=== PATIENT | female | born 1995 | race Hispanic/Latino ===

== ENCOUNTER 2025-08-13 03:42 | Emergency (ER) | payer SELFPAY ==
[~2025-08-13] VITALS: Ht 160 cm; Wt 99.8 kg
[~2025-08-13 03:42] MED LIST: FERR-82 PO
[2025-08-13 04:11] LABS: IMMATURE GRANULOCYTE ABSOLUTE 0.07 K/uL (0-1); NUCLEATED RED BLOOD CELLS 0.0 % (0.0-0.19); PLATELET COUNT (AUTO) 419 K/uL (130-400); RED BLOOD CELL COUNT(AUTO) 4.56 MIL/uL (4.00-5.50); RED CELL DISTRIBUTION WIDTH 12.9 % (11.0-15.5); WHITE BLOOD COUNT (AUTO) 13.7 K/uL (4.8-10.8)
[2025-08-13] MEDS: 0.9%NACL 1000ML 1,000 ML IV ONE ×2 (04:12→04:59)
--- NOTE | 2025-08-13 04:12 | ERN ---
ED Note History of Present Illness Stated Complaint: RT SIDED ABD PAIN, N/V Chief Complaint: Abdominal Pain Time Seen by MD: 03:46 Dictation: Patient is a 30-year-old female who presents to the ER complaining of abdominal pain, nausea vomiting started 3 hours prior arrival. Patient stated that she has been having the symptoms since 3 months ago, stated the 1st she feels like abdominal burning in the right abdomen and then she started to have vomiting. She was evaluated outside hospital 1 month ago, was told that her symptoms was due to side effect of marijuana. Allergies: Coded Allergies: No Known Drug Allergies (Unverified Allergy, Unknown, 09/21/19) Home Meds Reported Medications Ferrous Sulfate (Iron) 325 Mg Tablet, 325 MG PO DAILY, TAB 09/21/19 Past Medical History Past Medical History: No Pertinent History Surgical History: None Social History: Drugs (Marijuana use) RN Note Reviewed/Agreed w/PFSH: Yes Review of System Dictation NEGATIVE EXCEPT PER HPI Constitutional: Negative for fever,chills, and weight loss Eyes: Negative for injury, pain,redness, and discharge ENT: Negative for injury,pain or swelling Cardiovascular: denies chest pain, palpitations, and edema Respiratory: Negative for shortness of breath, cough, and wheezing, Abdomen/GI: Vomiting and abdominal pain reports. Back: Negative for injury and pain : Negative for injury, bleeding and discharge MS/Extremity: Negative for injury and deformity Skin: Negative for rash, and discoloration Neuro: Negative for headache, weakness, numbness, tingling, and seizure Psych: Negative for suicide ideation, homicidal ideation, and hallucinations Initial Vital Sign VS Vital Signs Date Time Temp Pulse Resp B/P (MAP) Pulse Ox O2 Delivery O2 Flow Rate FiO2 08/13/25 03:44 97.5 80 20 148/77 99 Room Air Physical Exam Dictation General: awake, alert, NAD Head/Face: Normocephalic, atraumatic Eyes: PERRL, EOMI, vision at baseline ENT: oral cavity clear, TMs clear, no signs of infection Neck: Trachea midline, supple, no nuchal rigidity Cardiovascular: RRR, normal S1/S2, No MRGs, no JVD Respiratory: CTAB, no respiratory distress, No rales or wheezes Abdomen: Soft , no tender Skin: Warm, dry, normal turgor, no rash MS/Extremity: Pulses equal, no cyanosis, neurovascular intact, FROM Neuro: COAx4, GCS 15, strength 5/5, CN 2-12 intact, normal cerebellar exam, normal gait, Psych: Normal behavior, mood, and affect normal Results (Laboratory/Radiology) Laboratory/Radiology Laboratory Tests Test 08/13/25 04:05 08/13/25 04:54 White Blood Count 13.7 K/uL (4.8-10.8) H Red Blood Count 4.56 MIL/uL (4.00-5.50) Hemoglobin 14.3 g/dL (12.0-16.0) Hematocrit 42.1 % (36-48) Mean Corpuscular Volume 92.3 fL (79-99) Mean Corpuscular Hemoglobin 31.4 pg (27.0-33.0) Mean Corpuscular Hemoglobin Concent 34.0 g/dL (32.0-36.0) Red Cell Distribution Width 12.9 % (11.0-15.5) Platelet Count 419 K/uL (130-400) H Mean Platelet Volume 10.2 fL (7.5-10.5) Immature Granulocyte % (Auto) 0.5 % (0-1) Neutrophils (%) (Auto) 76.0 % (40.0-77.0) Lymphocytes (%) (Auto) 16.3 % (21.0-51.0) L Monocytes (%) (Auto) 6.0 % (3.0-13.0) Eosinophils (%) (Auto) 0.6 % (0.0-8.0) Basophils (%) (Auto) 0.6 % (0.0-5.0) Neutrophils # (Auto) 10.4 K/uL (1.8-7.7) H Lymphocytes # (Auto) 2.2 K/uL (1.0-4.8) Monocytes # (Auto) 0.8 K/uL (0.1-1.0) Eosinophils # (Auto) 0.08 K/uL (0.00-0.70) Basophils # (Auto) 0.08 K/uL (0.00-0.20) Absolute Immature Granulocyte (auto 0.07 K/uL (0-1) Nucleated Red Blood Cells 0.0 % (0.0-0.19) Sodium Level 137 mmol/L (136-145) Potassium Level 3.8 mmol/L (3.5-5.1) Chloride Level 103 mmol/L (101-111) Carbon Dioxide Level 25 mmol/L (21-32) Blood Urea Nitrogen 9 mg/dL (7-18) Creatinine 0.8 mg/dL (0.5-1.0) Glomerular Filtration Rate Calc 101 mL/min (>90) Random Glucose 119 mg/dL (70-105) H Total Calcium 9.3 mg/dL (8.5-10.1) Total Bilirubin 0.3 mg/dL (0.2-1.0) Aspartate Amino Transf (AST/SGOT) 14 U/L (10-37) Alanine Aminotransferase (ALT/SGPT) 27 U/L (12-78) Alkaline Phosphatase 109 U/L (50-136) Total Protein 8.2 g/dL (6.0-8.3) Albumin 4.2 g/dL (3.5-5.0) Lipase 22 U/L (16-77) Urine Color LIGHT-YELLOW (YELLOW) Urine Appearance CLEAR (CLEAR) Urine pH 8.5 (5.0-8.0) H Urine Specific [place] 1.019 (1.001-1.031) Urine Protein NEGATIVE mg/dL (NEGATIVE) Urine Glucose (UA) NEGATIVE mg/dL (NEGATIVE) Urine Ketones NEGATIVE mg/dL (NEGATIVE) Urine Occult Blood NEGATIVE (NEGATIVE) Urine Nitrate NEGATIVE (NEGATIVE) Urine Bilirubin NEGATIVE mg/dL (NEGATIVE) Urine Urobilinogen 0.2 mg/dL (0.2-1.0) Urine Leukocyte Esterase NEGATIVE [place]ina/uL Urine HCG, Qualitative NEGATIVE (NEGATIVE) Urine Opiates Screen NEGATIVE (NEGATIVE) Urine Barbiturates Screen NEGATIVE (NEGATIVE) Urine Phencyclidine Screen NEGATIVE (NEGATIVE) Urine Amphetamines Screen NEGATIVE (NEGATIVE) Urine Benzodiazepines Screen NEGATIVE (NEGATIVE) Urine Cocaine Screen NEGATIVE (NEGATIVE) Urine Marijuana (THC) Screen POSITIVE (NEGATIVE) H Labs Reviewed?: Yes CT Scan Comment: REASON: abd pain ORDERING PHYSICIAN: KEVIN KUMARI MD PROCEDURE: ABD PEL W - CT ABDOMEN/PELVIS W/CONTRAST EXAM: CT Abdomen and Pelvis With IV Contrast CLINICAL HISTORY: Abdominal pain. TECHNIQUE: Axial computed tomography images of the abdomen and pelvis were obtained following intravenous contrast administration. Multiplanar reformatted images were reviewed. CONTRAST: Intravenous contrast was administered. COMPARISON: No priors available at the time of interpretation. FINDINGS: LUNG BASES: Linear subsegmental atelectasis in the right lower lobe. No pleural effusion. LIVER: The liver is enlarged, measuring approximately 20 cm in craniocaudal dimension. No focal hepatic lesion is identified. GALLBLADDER AND BILE DUCTS: The gallbladder is unremarkable. No biliary ductal dilatation. PANCREAS: Unremarkable. SPLEEN: Unremarkable. ADRENAL GLANDS: Unremarkable. KIDNEYS, URETERS, AND BLADDER: A small cortical cyst is seen in the mid-pole of the left kidney measuring approximately 12 x 11 mm. No hydronephrosis or hydroureter. No urinary calculi. STOMACH AND BOWEL: Mild fecal loading is noted in the cecum and ascending colon. No bowel obstruction. No imaging features of enteritis or colitis. APPENDIX: Appendix appears normal. PERITONEUM: No free fluid or free air. LYMPH NODES: No lymphadenopathy. REPRODUCTIVE ORGANS: Multiple small follicles in the bilateral ovaries. No adnexal mass. Anterior subserosal fibroid 2.9 x 3.0 cm from the uterus on the left side. VASCULATURE: No abdominal aortic aneurysm. BONES: No acute osseous abnormality. No aggressive appearing osseous lesion. IMPRESSION: No acute intra-abdominal pathology. No inflammatory bowel thickening, diverticulosis, or diverticulitis. Hepatomegaly with fatty infiltration of the liver. Left renal cortical cyst in the interpolar region. No follow-up as indicated. Multiple small cysts in the bilateral ovaries are consistent with ultrasound findings. Subserosal fibroid from the uterus on the left side. /[place] DICTATED BY: URI ALDRIDGE Jr., MD DATE: 08/13/25816 ELECTRONICALLY SIGNED BY: URI ALDRIDGE Jr., MD DATE: 08/13/25816 ED Course ED Course Orders Procedure Category Date Status Time Urinalysis Profile LAB 08/13/25 Complete 03:46 ,Urine Test LAB 08/13/25 Complete 03:46 Drug Screen Urine LAB 08/13/25 Complete 03:46 Cbc With Differential LAB 08/13/25 Complete 03:51 Comprehensive LAB 08/13/25 Complete Metabolic Panel 03:51 Lipase LAB 08/13/25 Complete 03:51 Ondansetron 4mg Inj PHA 08/13/25 Complete (Zofran 4mg Inj) 04:00 0.9%Nacl 1000ml (Ns PHA 08/13/25 Complete 1000ml) 04:00 Famotidine 20mg Vial PHA 08/13/25 Complete (Pepcid 20mg Vial) 04:30 0.9%Nacl 1000ml (Ns PHA 08/13/25 Complete 1000ml) 05:00 Promethazine Hcl PHA 08/13/25 Complete (Phenergan) 05:00 Ct Abdomen/Pelvis CT 08/13/25 Resulted W/Contrast 05:46 Iohexol (Omnipaque) PHA 08/13/25 Complete 05:58 Prochlorperazine PHA 08/13/25 Complete 10mg/2ml Inj 07:30 Ketorolac PHA 08/13/25 Complete Tromethamine 30mg/Ml 08:00 Current Medications Medications (Trade) Dose Ordered Sig/Jorge Route PRN Reason Start Time Stop Time Status Last Admin Dose Admin Famotidine (Pepcid 20mg Vial) 20 mg ONCE ONCE IV 08/13/25 04:30 08/13/25 04:31 DC 08/13/25 04:27 Iohexol (Omnipaque) 75 ml STK-MED ONCE IV 08/13/25 05:58 08/13/25 05:58 DC Ketorolac Tromethamine (toRADol) 30 mg ONCE ONCE IVP 08/13/25 08:00 08/13/25 08:01 DC 08/13/25 07:54 Ondansetron HCl (zoFRAN 4MG INJ) 4 mg ONCE ONCE IVP 08/13/25 04:00 08/13/25 04:01 DC 08/13/25 04:12 Prochlorperazine Edisylate (Compazine 10mg/ 2ml Inj) 10 mg ONCE ONCE IV 08/13/25 07:30 08/13/25 07:37 DC 08/13/25 07:53 Promethazine HCl (Phenergan) 25 mg ONCE ONCE IM 08/13/25 05:00 08/13/25 05:01 DC 08/13/25 04:59 Sodium Chloride 1,000 ml @ 0 mls/hr ONCE ONCE IV 08/13/25 04:00 08/13/25 04:01 DC 08/13/25 04:12 Sodium Chloride 1,000 ml @ 0 mls/hr ONCE ONCE IV 08/13/25 05:00 08/13/25 05:01 DC 08/13/25 04:59 Vital Signs Date Time Temp Pulse Resp B/P (MAP) Pulse Ox O2 Delivery O2 Flow Rate FiO2 08/13/25 03:44 97.5 80 20 148/77 99 Room Air Medical Decision Making MDM 30-year-old female who presented with a nausea, vomiting abdominal pain started 3 hours ago prior arrival, patient does have history of smoking cannabis. Abdominal pain Intractable vomiting Intractable abdominal pain/home due to cannabis Dehydration Ordered laboratory workup including CBC, BNP, UA, test, urine drug screen Ordered Zofran, IV fluids. Patient was re-evaluate 1 hour after given medication for nausea and vomiting she remains with the vomiting. We will proceed ordered Phenergan 25 mg IM once Assumed care of the patient at 7:00 a.m.. This is a 30-year-old female who presented to the emergency room with a right- sided abdominal pain intractable nausea vomitings off and on going on for 2-3 months. She also reports burning sensation in her stomach and her vomitings this time started at midnight and she had 4 episodes she was gagging and she had severe abdominal pain and hence she came in for evaluation. Patient was evaluated by another ER a month ago and she was told that it was probably related to her smoking marijuana however the patient was unhappy and came here for a 2nd opinion. No hematemesis or melena. No fever chills or rigors. She is not on any other medications. She does have a Depo contraceptive implant in her left upper extremity which has a in April 2025. She stated that she has been smoking marijuana since age 12 and has significantly cut back. Temperature 97.5 pulse 80 respirations 20 blood pressure 148/77 BMI 39. Pulse oximetry 99% on room air Morbidly obese female with a benign abdominal exam. 7:30 a.m. labs reviewed CBC showed a white count of 13.7, BNP 7 is normal, LFTs are within normal limits. Lipase is 22. Urinalysis is unremarkable and UDS is positive for THC CT scan of the abdomen and pelvis was done please see the full report no acute intra-abdominal pathology was noted. As she had intractable nausea vomitings despite Phenergan, I gave her Compazine with pain medication 10:00 a.m. on re-evaluation patient feels significantly improved has a received IV fluid hydration. I updated her on the CT scan findings in the labs and explained to her that perhaps her symptoms are a combination of gastritis, biliary colic, cannabis hyperemesis syndrome. She will be discharged to home with a few tablets of Compazine Rationale: Tests considered and ordered secondary to shared decision making include: Labs urinalysis and abdominal imaging Previous outside records reviewed: Old ER visits. Risk of complication and/or morbidity or mortality of patient management: None Medications-Per medication reconciliation Need for hospitalization: Patient does not meet criteria for hospitalization. Need for emergency major/minor surgery: No There are no social concerns with this patient. Prescription drug management Prescriptions will include symptomatic care Patient's prior external medical records from other ER visits were reviewed by me as indicated. Prior testing and results from previous visits were reviewed. Prior tests were taken into account with medical decision making and resource utilization, independent historian/historians were used to obtain complete medical history. I independently interpreted the test that were performed, results were reviewed by me and considered findings on radiology if ordered. Medical management and examination interpretation discussions were had by me wit h other qualified healthcare professionals as indicated for the patient's care. Problem List Problem List: (1) Gastritis (2) Cannabinoid hyperemesis syndrome DX & DISP Disposition: Discharge Departure Impression: Primary Impression: Cannabinoid hyperemesis syndrome Additional Impression: Gastritis Condition: Stable Scripts Prochlorperazine Maleate (Compazine) 10 Mg Tablet 1 TAB PO Q6H for 7 Days, #28 TAB 0 Refills Prov: KLEBER ISLAS MD 08/13/25 Additional Instructions: Patient and the caregiver have been informed of all the diagnostic tests and the imaging conducted during the today's visit to the emergency room and has verbalized understanding of the results I have personally reviewed and interpreted all diagnostic exams performed here in the ER today as well as the vital signs documented by the nursing staff. The patient is now being discharged to home and should follow up with the primary care physician or the specialist as directed by the ER staff. 1 schedule a follow-up appointment; call your primary care physician's office on the next business day to set up a follow-up appointment. 2. Monitor symptoms; if your symptoms worsen return to the emergency room immediately. 3. Return to school/work; you may return to work or school in 2 days or as directed by your primary care physician. 4. Manage pain and fever; take [id number] Tylenol or Advil for pain or fever if there are no contraindications follow the recommended dosage instructions. 5. Stay well hydrated; drink plenty of oral fluids to stay hydrated. 6. Take prescribed medications; take any medications prescribed in the emergency room as directed bring them with you to your primary care physician visit for possible adjustments. 7. Complete medication course; finish the entire course of medication as prescribed even if you start feeling better. Do not have any leftover medication unless instructed otherwise. 8. Follow up on culture results; if a urine culture and wound culture was ordered in the emergency room please follow-up with your primary care physician within 2-3 days to review the culture and sensitivity report for appropriate antibiotic therapy adjustments. 9. Resume home medications; you may resume taking your home medications unless instructed otherwise. Extensive counseling on weight loss lifestyle modifications marijuana abstinence. So I recommended that she should follow up with the primary care physician and see if she needs to see a director of infection control Referrals: SELF,REFERRAL (PCP) KEVIN KUMARI MD Aug 13, 2025 04:12 KLEBER ISLAS MD Aug 13, 2025 07:31
[2025-08-13 04:20] LABS: CREATININE 0.8 mg/dL (0.5-1.0); GLOMERULAR FILTR. RATE CALC 101.0 mL/min (>90); GLUCOSE,RANDOM 119.0 mg/dL (70-105); SODIUM SERUM 137.0 mmol/L (136-145); UREA NITROGEN, BLOOD 9.0 mg/dL (7-18)
[2025-08-13 04:25] LABS: ASPARTATE AMINOTRANSFERASE 14.0 U/L (10-37); TOTAL PROTEIN, SERUM 8.2 g/dL (6.0-8.3)
[2025-08-13] MEDS: FAMOTIDINE 20MG VIAL IV ONE (04:27)
[2025-08-13] MEDS: PROMETHAZINE HCL 25 MG/ML 1ML AMPULE IM ONE (04:59)
[2025-08-13 05:03] LABS: APPEARANCE,URINE CLEAR (CLEAR); GLUCOSE, URINE (UA) NEGATIVE (NEGATIVE); LEUKOCYTE ESTERASE ,URINE NEGATIVE Leu/uL (NEGATIVE); NITRATE,URINE NEGATIVE (NEGATIVE); OCCULT BLOOD,URINE NEGATIVE (NEGATIVE)
[2025-08-13 05:04] LABS: ADD UA MICROSCOPIC NO
[2025-08-13 05:05] LABS: HCG,QUALITATIVE URINE NEGATIVE (NEGATIVE)
[2025-08-13 05:11] LABS: AMPHET/METH SCREEN,URINE NEGATIVE (NEGATIVE); BARBITURATE SCREEN, URINE NEGATIVE (NEGATIVE); CANNABINOID SCREEN,URINE POSITIVE (NEGATIVE); COCAINE SCREEN,URINE NEGATIVE (NEGATIVE)
[2025-08-13] MEDS ORDERED: IOHEXOL-350 75 ML VIAL IV ONE (05:58)
--- NOTE | 2025-08-13 07:18 | HMCIMG ---
EXAM: CT Abdomen and Pelvis With IV Contrast CLINICAL HISTORY: Abdominal pain. TECHNIQUE: Axial computed tomography images of the abdomen and pelvis were obtained following intravenous contrast administration. Multiplanar reformatted images were reviewed. CONTRAST: Intravenous contrast was administered. COMPARISON: No priors available at the time of interpretation. FINDINGS: LUNG BASES: Linear subsegmental atelectasis in the right lower lobe. No pleural effusion. LIVER: The liver is enlarged, measuring approximately 20 cm in craniocaudal dimension. No focal hepatic lesion is identified. GALLBLADDER AND BILE DUCTS: The gallbladder is unremarkable. No biliary ductal dilatation. PANCREAS: Unremarkable. SPLEEN: Unremarkable. ADRENAL GLANDS: Unremarkable. KIDNEYS, URETERS, AND BLADDER: A small cortical cyst is seen in the mid-pole of the left kidney measuring approximately 12 x 11 mm. No hydronephrosis or hydroureter. No urinary calculi. STOMACH AND BOWEL: Mild fecal loading is noted in the cecum and ascending colon. No bowel obstruction. No imaging features of enteritis or colitis. APPENDIX: Appendix appears normal. PERITONEUM: No free fluid or free air. LYMPH NODES: No lymphadenopathy. REPRODUCTIVE ORGANS: Multiple small follicles in the bilateral ovaries. No adnexal mass. Anterior subserosal fibroid 2.9 x 3.0 cm from the uterus on the left side. VASCULATURE: No abdominal aortic aneurysm. BONES: No acute osseous abnormality. No aggressive appearing osseous lesion. IMPRESSION: No acute intra-abdominal pathology. No inflammatory bowel thickening, diverticulosis, or diverticulitis. Hepatomegaly with fatty infiltration of the liver. Left renal cortical cyst in the interpolar region. No follow-up as indicated. Multiple small cysts in the bilateral ovaries are consistent with ultrasound findings. Subserosal fibroid from the uterus on the left side. /[place]
[2025-08-13] MEDS: PROCHLORPERAZINE 10MG/2ML INJ IV ONE (07:53)
[2025-08-13] MEDS ORDERED: PROC-13 PO (09:58)
[2025-08-13 10:19] VITALS: BP 113/56; PULSE 79; RESP 15; TEMP 98.4; O2SAT 99
== END 2025-08-13 10:19 | disposition home or self-care (01) ==
LOC: EDH 03:42
DX: R11.16 Cannabis hyperemesis syndrome (principal); R11.2 Nausea with vomiting, unspecified; F12.90 Cannabis use, unspecified, uncomplicated; K29.70 Gastritis, unspecified, without bleeding; E66.01 Morbid (severe) obesity due to excess calories; Z68.39 Body mass index [BMI] 39.0-39.9, adult
CPT/HCPCS: 99285; 74177; 96375; 96374; 96361; 80053; 80305; 83690; 85025; 81003; 81025; 36415; 96372; J1885; J1308; J7030 ×2; J2550; J0780; J2405; Q9967